=== PATIENT | male | born 1990 ===

== ENCOUNTER 2019-04-04 18:25 | Emergency (ER) | payer MEDICAID ==
[~2019-04-04] VITALS: Ht 170.2 cm; Wt 56.7 kg
[2019-04-04] MEDS ORDERED: BENADRYL25 MG PO (19:00)
[2019-04-04] MEDS ORDERED: Prednisone20 MG PO (19:00)
== END 2019-04-04 19:17 | disposition home or self-care (01) ==
LOC: ER 18:25
DX: L50.9 Urticaria, unspecified (principal)
CPT/HCPCS: 99283; J2704; J7030; J7512; Q0163